=== PATIENT | female | born 1995 | race Caucasian/White ===

== ENCOUNTER 2017-02-24 09:04 | Emergency (ER) | END 2017-02-24 09:53 | disposition left against medical advice (07) | LOC: UCCORT 09:04 | DX: J02.9 Acute pharyngitis, unspecified (principal); R05 Cough; Z53.21 Procedure and treatment not carried out due to patient leaving prior to being seen by health care provider ==

== ENCOUNTER 2017-02-24 10:01 | Emergency (ER) | payer OTHER ==
--- NOTE | 2017-02-24 11:47 | UC ---
Respiratory Complaint HPI - HPI Summary HPI Summary: cough, ST x 5 days. Returned from [place] 3 weeks ago. Does not have muscle aches or joint pains or rash or conjunctivitis and states she did not get any mosquito bites so pt is not concerned about travel related illness such as Zika or dengue or chikungunya. Nonproductive cough. No fever. - History of Current Complaint Chief Complaint: UCGeneralIllness Stated Complaint: SORE THROAT,COUGH Time Seen by Provider: 02/24/17 10:33 Hx Obtained From: Patient Hx Last Menstrual Period: ~02/06/17 Onset/Duration: Gradual Onset, Lasting Days Timing: Constant Severity Initially: Moderate Severity Currently: Moderate Pain Intensity: 5 Pain Scale Used: 0-10 Numeric Character: Cough: Nonproductive Aggravating Factors: Nothing Alleviating Factors: Nothing Associated Signs And Symptoms: Positive: Nasal Congestion. Negative: Fever - Risk Factors Pulmonary Embolism Risk Factors: Negative Cardiac Risk Factors: Negative Pseudomonas Risk Factors: Negative Tuberculosis Risk Factors: Negative - Allergies/Home Medications Allergies/Adverse Reactions: Allergies Allergy/AdvReac Type Severity Reaction Status Date / Time Apple Allergy Itching Verified 02/24/17 10:37 Tree Nuts Allergy Unknown Verified 02/24/17 10:37 Reaction Details Carrot Allergy Hives and Uncoded 02/24/17 10:37 Itching Environmental Allergy Eyes Uncoded 02/24/17 10:37 Itchy/Swollen/Red/Watery Home Medications: Home Medications Chlorpheniramine & Phenylephri [Sinus & Allergy PE Maximu 4-10 mg] 1 tab PO Q4H PRN 02/24/17 [History Confirmed 02/24/17] Desloratidine (NF) [Clarinex (NF)] 5 mg PO DAILY PRN 02/24/17 [History Confirmed 02/24/17] Epinephrine [Epipen 2-Alex] 0.3 mg IM SEE INSTRUCTIONS PRN 02/24/17 [History Confirmed 02/24/17] [id number] [Nyquil Severe Cold/Flu 5-6.25-10-325 mg/15Ml] 30 ml PO Q6H PRN 02/24/17 [History Confirmed 02/24/17] PMH/Surg Hx/FS Hx/Imm Hx Respiratory History Of: Reports: Asthma - Surgical History Surgical History: Yes Surgery Procedure, Year, and Place: Right Knee Arthroscopy, 2015, [place] - Family History Known Family History: Positive: Other - no hx asthma - Social History Occupation: Student Alcohol Use: Occasionally Substance Use Type: None Smoking Status (MU): Never Smoked Tobacco - Immunization History Most Recent Influenza Vaccination: August 2016 Review of Systems Constitutional: Negative Skin: Negative Eyes: Negative ENT: Sore Throat Respiratory: Cough Cardiovascular: Negative Gastrointestinal: Negative Genitourinary: Negative Motor: Negative Neurovascular: Negative Musculoskeletal: Negative Neurological: Negative Psychological: Negative All Other Systems Reviewed And Are Negative: Yes Physical Exam Triage Information Reviewed: Yes Appearance: Well-Nourished, Ill-Appearing Vital Signs: Initial Vital Signs Temp 97.8 F 02/24/17 10:32 Pulse 96 02/24/17 10:32 Resp 18 02/24/17 10:32 BP 113/72 02/24/17 10:32 Pulse Ox 99 02/24/17 10:32 Vital Signs Reviewed: Yes Eyes: Positive: Conjunctiva Clear ENT: Positive: Hearing grossly normal, Pharyngeal erythema, TMs normal. Negative: Muffled/hoarse voice Neck: Positive: Supple, Nontender, No Lymphadenopathy Respiratory: Positive: No respiratory distress, Decreased breath sounds, Wheezing, Expiration Cardiovascular: Positive: RRR, No Murmur, Pulses Normal, Brisk Capillary Refill Abdomen Description: Positive: Nontender, Soft. Negative: CVA Tenderness (R), CVA Tenderness (L), Distended, Guarding, Hepatomegaly, McBurney's Point Tenderness, Peritoneal Signs, Pulsatile Mass, Splenomegaly Bowel Sounds: Positive: Present Musculoskeletal: Positive: Strength Intact, ROM Intact Neurological: Positive: Alert, Muscle Tone Normal Psychological Exam: Normal Skin Exam: Normal Diagnostic Evaluation - Laboratory O2 Sat by Pulse Oximetry: 99 Respiratory Course/Dx - Differential Dx/Diagnosis Differential Diagnosis/HQI/PQRI: Bronchitis, Influenza, Lower Resp Infection, Sinusitis, Other - strep Provider Diagnoses: acute laryngitis. acute asthmatic bronchitis Discharge - Discharge Plan Condition: Stable Disposition: HOME Prescriptions: Albuterol HFA INHALER* [Ventolin HFA Inhaler*] 2 puff INH Q4H PRN #1 mdi PRN Reason: Cough Fluticasone NASAL SPRAY 50MCG* [Flonase NASAL SPRAY 50MCG*] 2 spray BOTH NARES DAILY #1 btl predniSONE TAB* [Deltasone TAB*] 40 mg PO DAILY #10 tab Patient Education Materials: Laryngitis (ED), Acute Bronchitis (ED), Bronchospasm (ED) Forms: *School Release Referrals: Non Staff,Doctor [Primary Care Provider] -
[2017-02-24 12:07] VITALS: BP 118/72
== END 2017-02-24 12:07 | disposition home or self-care (01) ==
LOC: UCCORT 10:01
DX: J45.901 Unspecified asthma with (acute) exacerbation (principal); J04.0 Acute laryngitis
CPT/HCPCS: 87651; 99202; G0463